=== PATIENT | female | born 1980 | race Caucasian/White ===

== ENCOUNTER 2020-01-11 20:55 | Emergency (ER) | payer BC, OTHER ==
[~2020-01-11] VITALS: Ht 170.2 cm; Wt 90.7 kg
[2020-01-11 22:40] VITALS: BP 133/87
[2020-01-11] MEDS ORDERED: HYDROmorphone HCL 2 MG/ML VL IV ONE ×2 (22:45→23:15)
[2020-01-11] MEDS ORDERED: LORazepam 2MG/ML-1ML VIAL IV ONE (22:45)
[2020-01-11] MEDS ORDERED: ONDANSETRON HCL 4 MG/2 ML VIAL IV ONE (22:45)
[2020-01-11 22:49] LABS: Basophils # (auto) 0.1 10 ^3/uL (0-0.2); Basophils % (auto) 0.3 % (0.0-2.0); Eosinophils # (auto) 0.1 10 ^3/uL (0-0.8); Eosinophils % (auto) 0.3 % (0.0-7.0); Hematocrit 42.1 % (36.0-46.0); Hemoglobin 14.1 g/dL (12.2-16.2); Lymphocytes # (auto) 2.6 10 ^3/uL (0.4-5.4); Mean Corpuscular Hemoglobin 30.2 pg (28.0-32.0); Mean Corpuscular Hgb Conc. 33.4 g/dL (32.0-36.0); Mean Corpuscular Volume 90.4 fL (80.0-100.0); Monocytes # (auto) 0.8 10 ^3/uL (0-1.3); Monocytes % (auto) 4.4 % (0.0-12.0); Nucleated Red Blood Cells % 0.1 %; Platelet Count (auto) 267 10^3/uL (140-450); Red Blood Cells 4.65 10^6/uL (4.0-5.20); Red Cell Distribution Width 16.3 % (11.8-14.3); White Blood Cell 17.5 10^3/uL (4.4-10.8)
[2020-01-11 23:07] LABS: Albumin 4.3 g/dL (3.4-5.0); Calcium 9.3 mg/dL (8.5-10.1); Potassium 3.5 mmol/L (3.5-5.1)
[2020-01-11 23:09] LABS: BUN/Creatinine Ratio 13.6
[2020-01-11 23:12] LABS: Bilirubin, Total 0.3 mg/dL (0.2-1.0); Total Protein 8.2 g/dL (6.4-8.2)
[2020-01-11] MEDS ORDERED: ETOMIDATE (2MG/ML) 20ML VIAL IV ONE (23:15)
[2020-01-11 23:19] LABS: Partial Thromboplastin Time 28.6 sec (23.0-31.2)
== END 2020-01-12 01:36 | disposition home or self-care (01) ==
LOC: EDBD 20:55 → ER 20:59
DX: S42.331A Displaced oblique fracture of shaft of humerus, right arm, initial encounter for closed fracture (principal); S00.81XA Abrasion of other part of head, initial encounter; V49.9XXA Car occupant (driver) (passenger) injured in unspecified traffic accident, initial encounter; Y93.89 Activity, other specified; Y92.89 Other specified places as the place of occurrence of the external cause; Y99.8 Other external cause status
CPT/HCPCS: 29105; 36415; 70450; 70486; 71250; 72125; 73060; 74176; 80053; 85025; 85610; 85730; 96374; 96375; 96376; 99285; J1170; J2060; J2405